=== PATIENT | male | born 1990 | race African-American/Black ===

== ENCOUNTER 2021-02-05 09:36 | Emergency (ER) | payer MEDICAID, OTHER ==
[~2021-02-05] VITALS: Ht 172.7 cm; Wt 70.0 kg
[2021-02-05 10:18] VITALS: BP 111/68
== END 2021-02-05 10:18 | disposition home or self-care (01) ==
LOC: ER 09:36
DX: S80.02XA Contusion of left knee, initial encounter (principal); X58.XXXA Exposure to other specified factors, initial encounter; Y93.89 Activity, other specified; Y92.89 Other specified places as the place of occurrence of the external cause; Y99.8 Other external cause status
CPT/HCPCS: 99281

== ENCOUNTER 2024-10-10 12:26 | Emergency (ER) | payer MEDICAID, OTHER ==
[~2024-10-10] VITALS: Ht 182.9 cm; Wt 73.0 kg
[2024-10-10 12:47] VITALS: O2SAT 100
[2024-10-10 13:22] VITALS: BP 112/62; PULSE 82; RESP 18; TEMP 36.9; O2SAT 98
== END 2024-10-10 13:25 | disposition home or self-care (01) ==
LOC: ER 12:26
DX: G89.29 Other chronic pain (principal); M25.562 Pain in left knee; M25.561 Pain in right knee
CPT/HCPCS: 99281; 99282